=== PATIENT | female | born 1965 | race Caucasian/White ===

== ENCOUNTER → 2017-09-27 | Outpatient (CLI) | payer BC ==
[~2017-09-27] MED LIST: ACET500T68 PO; ALEN70TA43 PO; AMOX-559 PO; APIX2.5T PO; APIX5TAB PO; AZIT-1 PO; BENZ200C15 PO; DIPH0.5D12 IM; FELO10TA34 PO; FLUT1DIS28 IH; FURO-45 PO; FURO20TA19 PO; GUAI120L3 PO; MELO-205 PO; OMEP-125 PO; POTA-28 PO; PRED20TA6 PO; RIVA20TA PO; TRAM-420 PO; TRAM-627 PO; WARF1TAB63 PO; WARF2.5T62 PO
== END ==
LOC: LAB 13:08
PROVIDERS: ATTEND Emergency Medicine
DX: E87.6 Hypokalemia (principal)
CPT/HCPCS: 36415; 82310; 82374; 82435; 82565; 82947; 84132; 84295; 84520

== ENCOUNTER → 2017-10-05 | Outpatient (REF) | payer BC | LOC: ZZSENDIN 12:00 | PROVIDERS: ATTEND Dentist | DX: D36.7 Benign neoplasm of other specified sites (principal) | CPT/HCPCS: 88305 ==